=== PATIENT | male | born 1960 | race Caucasian/White ===

== ENCOUNTER 2022-01-07 16:41 | Inpatient (IN) | payer MEDICARE, OTHER ==
[~2022-01-07] VITALS: Ht 182.9 cm; Wt 77.1 kg
--- NOTE | 2022-01-07 17:05 | NUR ---
Pt is medically cleared to be admitted to MHU.
[2022-01-07] MEDS ORDERED: FOLI1TAB94 PO (17:22)
[2022-01-07] MEDS ORDERED: RIVA10TA PO (17:22)
[2022-01-07] MEDS ORDERED: ONDA-104 PO (17:22)
[2022-01-07] MEDS ORDERED: POLY17PO4 PO (17:22)
[2022-01-07] MEDS ORDERED: GABA-532 PO (17:22)
[2022-01-07] MEDS ORDERED: CYAN-51 PO (17:22)
[2022-01-07] MEDS ORDERED: MELA3TAB41 PO (17:22)
[2022-01-07] MEDS ORDERED: BISA10SU61 RC (17:22)
[2022-01-07] MEDS ORDERED: DIVA500T2 PO (17:22)
[2022-01-07] MEDS ORDERED: ACET-2605 PO (17:22)
[2022-01-07] MEDS ORDERED: THIA100T13 PO (17:22)
--- NOTE | 2022-01-07 17:25 | NUR ---
Pt's room air sat drops to 80's, per pt to be admitted to the medical floor. Nursing asphalt paving supervisor notified of admission and need for 1:1 sitter.
--- NOTE | 2022-01-07 17:45 | NUR ---
Pt refused HL, agreed to blood draw.
--- NOTE | 2022-01-07 17:45 | NUR ---
Dr Young aware of pt's refusal to HL.
[2022-01-07 17:56] LABS: HEMATOCRIT 31.9 % (36.7-47.1); MEAN CORPUSCULAR HEMOGLOBIN 30.7 uug (23.8-33.4); MEAN CORPUSCULAR VOLUME 91.1 fL (73.0-96.2); PLATELET COUNT (AUTO) 324 K/uL (152-348)
[2022-01-07 18:21] LABS: CARBON DIOXIDE 35 mmol/L (21-32); CHLORIDE 108 mmol/L (98-107); CREATININE 0.7 mg/dL (0.6-1.3); GLUCOSE 97 mg/dL (74-106); POTASSIUM 4.1 mmol/L (3.5-5.1); UREA NITROGEN, BLOOD 14 mg/dL (7-18)
[2022-01-07] MEDS ORDERED: ENOXAPARIN SODIUM 80 MG/0.8 ML DISP.SYRIN SQ ONE ×2 (18:45→18:52)
--- NOTE | 2022-01-07 18:46 | NUR ---
Pt refused CTA, Dr Koch spoke to Pt.
--- NOTE | 2022-01-07 20:44 | NUR ---
CALLED [facility] SPOKE TO DIANA WHO REQUESTED FACESHEET AND CLINICALS TO BE FAXED TO .
--- NOTE | 2022-01-07 21:03 | NUR ---
Midline nurse inserted a line in the right upper arm
--- NOTE | 2022-01-08 00:18 | NUR ---
Called [facility], spoke to Candelaria nursing supervisor assembly who will call back to see if they can accept patient.
--- NOTE | 2022-01-08 00:47 | NUR ---
Slim Charge in ER from [facility], is unable to accept patient at this time.
--- NOTE | 2022-01-08 01:01 | NUR ---
Called [facility] , spoke to Frank who requested facesheet and clinicals to be faxed to .
--- NOTE | 2022-01-08 01:39 | NUR ---
CALLED [facility] WHO STATES THEY ARE UNABLE TO ACCEPT PATIENT DUE TO CAPACITY.
--- NOTE | 2022-01-08 01:41 | NUR ---
KEE FROM [facility] CALLED BACK AND STATED THEY ARE UNABLE TO ACCEPT PATIENT DUE TO MAX CAPACITY AT THIS TIME.
--- NOTE | 2022-01-08 01:47 | NUR ---
CALLED [facility], SPOKE TO MILAD WHO STATES THEY ARE AT CAPACITY AT THIS TIME.
--- NOTE | 2022-01-08 02:05 | NUR ---
1:1 sitter has went on break.
--- NOTE | 2022-01-08 07:00 | NUR ---
Received pt asleep in bed, sitter at bedside. Pt not in any form of distress.
--- NOTE | 2022-01-08 08:54 | NUR ---
Angely on pts bedside.
[2022-01-08] MEDS ORDERED: LORAZEPAM 2 MG/1 ML VIAL IV ONE (09:00)
[2022-01-08] MEDS ORDERED: LORAZEPAM 2 MG/1 ML VIAL ONE ×2 (09:07→11:05)
--- NOTE | 2022-01-08 10:15 | NUR ---
Pt will be admitted in telemetry under MD Michel.
--- NOTE | 2022-01-08 10:30 | NUR ---
Called for tele bed assignment, no beds available at this time.
--- NOTE | 2022-01-08 10:30 | NUR ---
[address] was called at 10:20 am today and talked to Francesca to notify that this patient is no longer on hold in [facility], but in [facility].
[2022-01-08] MEDS ORDERED: MORPHINE SULFATE 2 MG/1 ML DISP.SYRIN IV PRN (10:45)
[2022-01-08] MEDS ORDERED: ACETAMINOPHEN 325 MG TABLET PO PRN (10:45)
[2022-01-08] MEDS ORDERED: LORAZEPAM 2 MG/1 ML VIAL IV PRN ×2 (10:45→11:39)
[2022-01-08] MEDS ORDERED: ONDANSETRON 4 MG/2 ML VIAL IV PRN (10:45)
[2022-01-08] MEDS ORDERED: MIRALAX 17 GM POWD.PACK PO PRN (10:45)
[2022-01-08] MEDS ORDERED: BISACODYL 10 MG SUPP.RECT RC PRN (10:45)
[2022-01-08 11:07] LABS: HEMATOCRIT 31.3 % (36.7-47.1); MEAN CORPUSCULAR HEMOGLOBIN 30.8 uug (23.8-33.4); MEAN CORPUSCULAR VOLUME 89.8 fL (73.0-96.2); PLATELET COUNT (AUTO) 346 K/uL (152-348)
[2022-01-08] MEDS ORDERED: IV NORMAL SALINE 250 ML IV ONE (11:14)
[2022-01-08] MEDS ORDERED: IOHEXOL 350 100 ML INFUS..BTL ONE (11:14)
[2022-01-08] MEDS ORDERED: SWABABLE VALVE TRANSFER SET EA MC ONE (11:14)
[2022-01-08] MEDS ORDERED: HALOPERIDOL LACTATE 5 MG/1 ML VIAL IM PRN (11:15)
[2022-01-08] MEDS ORDERED: BENZTROPINE MESYLATE 0.5 MG TABLET PO SCH (11:30)
[2022-01-08] MEDS ORDERED: HALOPERIDOL 5 MG TABLET PO SCH (11:30)
[2022-01-08] MEDS ORDERED: THIAMINE HCL 100 MG TABLET PO SCH (11:30)
[2022-01-08] MEDS ORDERED: DIVALPROEX 500 MG TABLET.DR PO SCH ×3 (11:30)
[2022-01-08] MEDS ORDERED: BENZTROPINE MESYLATE 1 MG TABLET PO SCH (11:30)
[2022-01-08 11:43] LABS: BILIRUBIN,TOTAL 0.4 mg/dL (0.2-1.0); CREATININE 0.7 mg/dL (0.6-1.3); POTASSIUM 4.3 mmol/L (3.5-5.1); TOTAL PROTEIN, SERUM 5.6 g/dL (6.4-8.2)
[2022-01-08] MEDS ORDERED: GABAPENTIN 300 MG CAPSULE PO SCH (14:00)
--- NOTE | 2022-01-08 14:27 | NUR ---
Crisis Note Patient came to ED on 01/07/22 after he was accepted for MHU by Chad kellyhead of housekeeping and intake on 01/06/22. Patient has large PE and desaturates so is not stable for GPS. 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 Patient has a history of alcoholism and DUIs and also reportedly has history of schizophrenia. Patient was psychotic when seen earlier by Dr Foy and responded well to Haldol and Ativan which were started in ED. Dr Foy broke 5250 which was initiated at [facility]. Patient will be transferred to [facility] this evening under Dr Nye's care. Ricarda registered nurse hh case manager arranged ALS transport. leticia Samuelhead of housekeeping will assign a bed. Tiffani kellyhead of housekeeping notified.
--- NOTE | 2022-01-08 15:00 | NUR ---
Per Analia pt to be trans to [facility] floor, accepting physician. Pt to be trans via ALS ambulance.
--- NOTE | 2022-01-08 15:20 | NUR ---
Called [facility] for ALS transport, spoke with JOSEPH Allison for merchandise pickup/receiving associate [phone].
--- NOTE | 2022-01-08 15:30 | NUR ---
ETA for cone picker changed to 2000 per Analia/JOVON request.
[2022-01-08] MEDS ORDERED: LORAZEPAM 1 MG TABLET PO PRN (17:00)
--- NOTE | 2022-01-08 17:37 | NUR ---
Patient went to [facility] via ambulance, ALIYA allen give the report.
[2022-01-08] MEDS ORDERED: DOCUSATE SODIUM 100 MG CAPSULE PO SCH (21:00)
[2022-01-08] MEDS ORDERED: MELATONIN 3 MG TABLET PO SCH (21:00)
[2022-01-09] MEDS ORDERED: PANTOPRAZOLE SODIUM 40 MG TABLET.DR PO SCH (07:00)
[2022-01-09] MEDS ORDERED: CYANOCOBALAMIN 1,000 MCG TABLET PO SCH (09:00)
[2022-01-09] MEDS ORDERED: FOLIC ACID 1 MG TABLET PO SCH (09:00)
== END 2022-01-08 17:37 | disposition short-term general hospital (02) | DRG 189 ==
LOC: ER 16:45 → TRANSITION 01-08 11:13
PROVIDERS: ADMIT Internal Medicine; ATTEND Internal Medicine
PROC: 05H533Z Insertion of Infusion Device into Right Subclavian Vein, Percutaneous Approach (ICD-10-PCS; principal; 2022-01-07)
PROC: B546ZZA Ultrasonography of Right Subclavian Vein, Guidance (ICD-10-PCS; 2022-01-07)
DX: J96.01 Acute respiratory failure with hypoxia (principal); I26.99 Other pulmonary embolism without acute cor pulmonale; E43 Unspecified severe protein-calorie malnutrition; K65.0 Generalized (acute) peritonitis; I42.9 Cardiomyopathy, unspecified; F05 Delirium due to known physiological condition; F13.20 Sedative, hypnotic or anxiolytic dependence, uncomplicated; J90 Pleural effusion, not elsewhere classified; F20.9 Schizophrenia, unspecified; E78.5 Hyperlipidemia, unspecified; F25.9 Schizoaffective disorder, unspecified; F43.10 Post-traumatic stress disorder, unspecified; K82.8 Other specified diseases of gallbladder; N28.1 Cyst of kidney, acquired; Z20.822 Contact with and (suspected) exposure to COVID-19; Z91.51 Personal history of suicidal behavior; D64.9 Anemia, unspecified; I50.9 Heart failure, unspecified
CPT/HCPCS: 36415; 71045; 71275; 84484; 85025; 93005; A4663; G0378; J1650; J2060; Q9967